=== PATIENT | female | born 1950 | race Hispanic/Latino ===

== ENCOUNTER → 2018-10-18 13:07 | Outpatient (CLI) | payer OTHER, SELFPAY ==
--- NOTE | 2018-10-18 | DI.US.S_ITS ---
PROCEDURE: US VENOUS INSUFFICIENCY BILAT INDICATIONS: PAIN IN LEG, UNSPECIFIED TECHNIQUE: Real time scanning was performed of the lower extremity venous system, with imaging documentation, as well as Color and pulse Doppler interrogation. COMPARISON: None. FINDINGS: RIGHT LOWER EXTREMITY: The deep veins are normally compressible, and free of intraluminal thrombus. Color and pulse Doppler demonstrate normal intravascular flow. There is normal augmentation with distal compression maneuver. Mild reflux within the common femoral vein. Greater saphenous vein (GSV): Mild reflux at the saphenofemoral junction which is a normal finding; otherwise no reflux. Anterior accessory GSV (AAGSV): Not requested. Small saphenous vein (SSV): Not visualized. LEFT LOWER EXTREMITY: The deep veins are normally compressible, and free of intraluminal thrombus. Color and pulse Doppler demonstrate normal intravascular flow. There is normal augmentation with distal compression maneuver. Mild reflux within the common femoral vein. Greater saphenous vein (GSV): No reflux. Anterior accessory GSV (AAGSV): Not visualized. Small saphenous vein (SSV): Not visualized. IMPRESSION: Mild reflux within the common femoral veins. Dictated by: Wale PALACIOS Interpreted: Elena Rose MD on 10/18/2018 at 15:48 Approved by: Elena Rose M.D. on 10/18/2018 at 16:03
== END ==
PROVIDERS: PCP Internal Medicine; Visit Provider Internal Medicine
DX: M79.605 Pain in left leg (principal); M79.604 Pain in right leg; I87.2 Venous insufficiency (chronic) (peripheral)
CPT/HCPCS: 93970